=== PATIENT | female | born 2000 | race Caucasian/White ===

== ENCOUNTER → 2019-02-13 13:30 | Outpatient (CLI) | payer MEDICAID ==
--- NOTE | ~2019-02-13 | ST ---
PATIENT:KALEB DAVE MEDICAL RECORD: [id number] SEX: F LOCATION:[facility] ORDER #: ADMISSION DATE: 02/13/19 AGE OF PATIENT: 18 REFERRING PHYSICIAN: INTERPRETING PHYSICIAN: ASHLEY MUJICA MD DATE OF SERVICE: 02/13/2019 TREADMILL STRESS TEST Baseline ECG is normal. She exercised for 10 minutes on Tenzin protocol. Maximum heart rate of 189 beats per minute, greater than 85% of max predicted. No ECG changes for ischemia. No symptoms of ischemia. Normal blood pressure response to exercise. No arrhythmias noted. TRANSINT:[id number] Voice Confirmation ID: [id number] DOCUMENT ID: [id number] ASHLEY MUJICA MD CC: [id number] DICTATION DATE: 02/14/19 1340 AUDIO INSTALLER: 02/14/19 1442 [facility] CLI 02/13/[address] [address]
--- NOTE | ~2019-02-13 | EC ---
PATIENT:KALEB DAVE DATE OF SERVICE: 02/13/19 SEX: F MEDICAL RECORD: [id number] DATE OF : [birth year] LOCATION:D[facility] AGE OF PATIENT: 18 ADMISSION DATE: 02/13/19 REFERRING PHYSICIAN: INTERPRETING PHYSICIAN: ASHLEY MUJICA MD ECHOCARDIOGRAM REPORT ECHO CHARGES 4 ECHO COMPLETE Date: 02/13/19 CLINICAL DIAGNOSIS: MURMUR ECHOCARDIOGRAPHIC MEASUREMENTS (adult normal given) AC root (d.<3.7cm) 3.0 cm LV Septum d (<1.2 cm> 0.90 cm Valve Excursion 1.4 cm LV Septum (systole) 1.3 cm Left Atria (s.<4.0cm> 2.9 cm LVPW d(<1.2cm) 1.1 cm RV (d.<2.3cm) 3.8 cm LVPW (sytole) 1.4 cm LV diastole(<5.6CM) 4.0 cm MV E-F(>70mm/sec) cm LV systole 2.3 cm LVOT Diameter 1.7 cm MV exc.(>10mm) 1.5 cm Est.ejection fraction (50-75%) % DOPPLER: LVIT cm/sec A 45.0 cm/sec E 85.0 cm/sec LA cm/sec RVSP 36 mmHg LVOT 109 cm/sec AOP1/2T m/s Asc. Ao 119 cm/sec RVOT 74 cm/sec RA cm/sec PA 100 cm/sec AV Gradient Peak 5.71 mmHg AV Mean 2.91 mmHg AV Area 1.8 cm MV Gradient Peak 3.42 mmHg MV Mean 1.17 mmHg MV Area cm COMMENTS: Technical Support Assistant: 2 PLACIDO MOON Triple Air Valve Tester: 3 Dr. Thomas TAPE# PACS Pericardial Effusion N DATE OF SERVICE: 02/13/2019 Adequate 2-D, color-flow and spectral Doppler, and M-mode. No LVH. LV internal dimensions are normal. Wall motion is normal. EF greater than 55%. Aortic valve is tricuspid. No evidence of stenosis by Doppler interrogation. Left atrium is normal. Mitral valve shows no prolapse. Physiologic MR. Right-sided chambers are grossly normal. Physiologic TR. TRANSINT:[id number] Voice Confirmation ID: [id number] DOCUMENT ID: [id number] ECHOCARDIOGRAM REPORT [id number] KALEB DAVE GREGORY A MD CC: [id number] DICTATION DATE: 02/13/19 1550 OFFAL SEPARATOR: 02/13/19 1806 [facility] CLI 02/13/19 [id number] [place] [address]
== END | disposition home or self-care (01) ==
LOC: D.HCCARDIO 13:30
PROVIDERS: ATTEND Internal Medicine Interventional Cardiology
DX: R07.9 Chest pain, unspecified (principal)

== ENCOUNTER 2021-01-22 11:21 | Emergency (ER) | payer BC, MEDICAID ==
[~2021-01-22] VITALS: Ht 162.6 cm; Wt 90.9 kg
[2021-01-22 11:49] VITALS: BP 128/83; Ht 162.6 cm; Wt 90.9 kg
[2021-01-22] MEDS ORDERED: ZOLOFT50 MG PO (11:51)
[2021-01-22] MEDS ORDERED: BUSPIRONE HCL7.5 MG PO (11:51)
[2021-01-22 12:43] LABS: BASOPHILS 0.2 % (0-2); EOSINOPHILS 0.8 % (0-7); HEMATOCRIT 39.6 % (36.0-48.0); HEMOGLOBIN 12.9 g/dL (12-16); IMMATURE GRANULOCYTES 0.2 % (0-5); LYMPHOCYTE ABS# 1.47 10x3/uL (1.18-3.74); LYMPHOCYTES 22.7 % (15-50); MCH 27.6 pg (26.0-34.0); MCHC 32.6 g/dL (31.0-37.0); MCV 84.8 fL (80.0-100.0); MEAN PLATELET VOLUME 10.5 fL (7.4-10.4); MONOCYTES 6.2 % (2-11); NEUTROPHIL ABS# 4.55 10x3/uL (1.56-6.13); NEUTROPHILS 69.9 % (40-80); PLATELET COUNT 231 10x3/uL (130-400); RBC 4.67 10x6/uL (4.00-5.40); WBC 6.5 10x3/uL (4.8-10.8)
[2021-01-22 12:53] LABS: CALC OSMOLALITY 283 mosm/kg (275-300); CALCIUM 9.2 mg/dL (8.5-10.1); CARBON DIOXIDE 28.7 mmol/L (21.0-32.0); CHLORIDE - SERUM 105 mmol/L (98-107); CREATININE - SERUM 0.9 mg/dL (0.6-1.3); GLUCOSE 86 mg/dL (74-106); POTASSIUM - SERUM 3.8 mmol/L (3.5-5.1); SODIUM 143 mmol/L (136-145); UREA NITROGEN 13 mg/dL (7-18); eGFR NON AFRICAN AMERICAN 84 mL/min (90-120)
[2021-01-22 13:00] LABS: ALBUMIN 3.9 g/dL (3.4-5.0); ALKALINE PHOSPHATASE 104 U/L (30-120); ALT (SGPT) 32 U/L (10-68); BILIRUBIN - TOTAL 0.35 mg/dL (0.2-1.3); PROTEIN - SERUM 7.4 g/dL (6.4-8.2)
[2021-01-22 13:01] LABS: HCG SERUM NEGATIVE (NEGATIVE)
[2021-01-22 14:29] LABS: BACTERIA FEW HPF (NONE SEEN); BILIRUBIN NEGATIVE (NEGATIVE); KETONE NEGATIVE (NEGATIVE); NITRITE NEGATIVE (NEGATIVE); SQUAMOUS EPITHELIAL 0-5 HPF (0-4); UROBILINOGEN NORMAL mg/dL (< 2); WHITE CELLS - URINE RARE HPF (0-4)
== END 2021-01-22 15:23 | disposition home or self-care (01) ==
LOC: D.ER 11:21
PROVIDERS: Family Medicine
DX: R10.2 Pelvic and perineal pain (principal); N93.9 Abnormal uterine and vaginal bleeding, unspecified

== ENCOUNTER 2021-02-05 06:50 | Day surgery (SDC) | payer BC, MEDICAID ==
[2021-02-02 15:33] LABS: BASOPHILS 0.2 % (0-2); EOSINOPHILS 0.5 % (0-7); HEMATOCRIT 39.1 % (36.0-48.0); IMMATURE GRANULOCYTES 0.2 % (0-5); LYMPHOCYTE ABS# 1.77 10x3/uL (1.18-3.74); LYMPHOCYTES 26.8 % (15-50); MCH 27.7 pg (26.0-34.0); MCHC 33.2 g/dL (31.0-37.0); MCV 83.4 fL (80.0-100.0); MEAN PLATELET VOLUME 10.9 fL (7.4-10.4); MONOCYTES 6.7 % (2-11); NEUTROPHIL ABS# 4.34 10x3/uL (1.56-6.13); NEUTROPHILS 65.6 % (40-80); PLATELET COUNT 217 10x3/uL (130-400); RBC 4.69 10x6/uL (4.00-5.40); RDW 12.8 % (11.5-14.5); WBC 6.6 10x3/uL (4.8-10.8)
[~2021-02-05] VITALS: Ht 157.5 cm; Wt 87.3 kg
[~2021-02-05 06:50] MED LIST: BUSPIRONE HCL7.5 MG PO; ZOLOFT50 MG PO
[2021-02-05 08:15] VITALS: BP 132/70; BMI 35.2
[2021-02-05 08:36] LABS: HCG URINE NEGATIVE (NEGATIVE)
--- NOTE | 2021-02-05 11:31 | NUR ---
PT STATES LEFT SIDE OF ABD HURTS. GAVE 25 DEM AND .5 OF DIL. PATIENT DROWSY. SAT AT 94% ON 3L AT THIS TIME. EDUCATED ON OVERSEDATION.
[2021-02-05 11:48] VITALS: BP 135/73
--- NOTE | 2021-02-05 11:48 | NUR ---
PT RECEIVED TO ROOM 1278 VIA STRETCHER FROM PACU. PT AAOx3 BUT SLIGHTLY DROWSY. PT ABLE TO TRANSFER SELF FROM STRETCHER TO BED WITH MINIMAL ASSIST. VSS, SEE FLOWSHEET. 2L O2 VIA NC. LR INFUSING ORDERED TO RIGHT FOREARM PIV. 3 LAP INCISIONS NOTED TO ABD ARE C/D WITH DERMABOND INTACT. NO VAGINAL BLEEDING SEEN, PERIPAD PLACED TO MONITOR. HINES CATH DRAINING CLEAR YELLOW URINE TO BEDSIDE DRAINAGE, 15ML NOTED IN UROMETER. SCD'S ON LE BILAT AND ON PUMP. PT DENIES WANTING ICE CHIPS AT THIS TIME. SRUx2, CL IN REACH. SIG OTHER AT BEDSIDE .
--- NOTE | 2021-02-05 13:10 | NUR ---
THIS RN TO ROOM FOR PT CHECK. PT STATES SHE FEELS LIKE SHE HAD SOME VAGINAL BLEEDING. PERIPAD CHECK AND NOTED TO HAVE QUARTER SIZED SPOT OF BRIGHT RED BLOOD. PT REASSURED. HINES CATH NOTED TO HAVE 30ML CLEAR YELLOW URINE IN UROMETER. PT REPORTS STILL HAVING SOME LEFT SIDED PAIN, DENIES NEED FOR PAIN MED. USING ICE PACK TO LEFT ABD. SRUx2, CL IN REACH. SIG OTHER ON BEDSIDE COUCH.
--- NOTE | 2021-02-05 13:25 | NUR ---
LAB TO ROOM FOR ORDERED LABS.
[2021-02-05 13:48] LABS: BASOPHILS 0 % (0-2); EOSINOPHILS 0 % (0-7); HEMATOCRIT 39.6 % (36.0-48.0); HEMOGLOBIN 12.9 g/dL (12-16); IMMATURE GRANULOCYTES 0.1 % (0-5); LYMPHOCYTE ABS# 0.56 10x3/uL (1.18-3.74); LYMPHOCYTES 6.4 % (15-50); MCH 27.3 pg (26.0-34.0); MCHC 32.6 g/dL (31.0-37.0); MCV 83.9 fL (80.0-100.0); MEAN PLATELET VOLUME 10.7 fL (7.4-10.4); MONOCYTES 0.1 % (2-11); NEUTROPHIL ABS# 8.18 10x3/uL (1.56-6.13); NEUTROPHILS 93.4 % (40-80); PLATELET COUNT 206 10x3/uL (130-400); RBC 4.72 10x6/uL (4.00-5.40); RDW 12.7 % (11.5-14.5); WBC 8.8 10x3/uL (4.8-10.8)
[2021-02-05 13:51] LABS: ALBUMIN 3.4 g/dL (3.4-5.0); ALKALINE PHOSPHATASE 102 U/L (30-120); ALT (SGPT) 22 U/L (10-68); BILIRUBIN - TOTAL 0.25 mg/dL (0.2-1.3); CALC OSMOLALITY 276 mosm/kg (275-300); CALCIUM 8.8 mg/dL (8.5-10.1); CARBON DIOXIDE 27.7 mmol/L (21.0-32.0); CHLORIDE - SERUM 105 mmol/L (98-107); CREATININE - SERUM 0.9 mg/dL (0.6-1.3); GLUCOSE 106 mg/dL (74-106); POTASSIUM - SERUM 4.3 mmol/L (3.5-5.1); SODIUM 139 mmol/L (136-145); UREA NITROGEN 10 mg/dL (7-18); eGFR NON AFRICAN AMERICAN 84 mL/min (90-120)
--- NOTE | 2021-02-05 14:23 | NUR ---
DR RESENDEZ ON UNIT, REVIEWS LAB RESULTS. ORDER RECEIVED MAY ADVANCE PT TO CLEAR LIQUIDS, START ON TORADOL IV PRN PAIN, AND BOLUS 500ML LR x 1 FOR LOW URINE OUTPUT. TORADOL ADMIN ORDERED WELL ALONG WITH SCHEDULED SIMETHICONE PER PT NOW TOLERATING ICE CHIPS. LR BOLUS INITIATED AND SET FOR 500ML. PT AND SPOUSE UPDATED ON POC. PT REQUESTING TEA, WILL PROVIDE REQUESTED PER CLEAR LIQUID DIET. 65ML CLEAR YELLOW URINE EMPTIED FROM UROMETER. ABD CHECK AND INCISIONS REMAIN C/D/I AND ABD SOFT/FLAT. SCD'S REMAIN ON LE BILAT. IV C/D/I. SRUx2, CL IN REACH.
--- NOTE | 2021-02-05 14:30 | NUR ---
60ML CLEAR YELLOW URINE EMPTIED FROM UROMETER.
--- NOTE | 2021-02-05 15:15 | NUR ---
PT PROVIDED WITH WARM BLANKET, SOCKS, ICE PACK TO ABD, AND CUP OF ICE PER REQUEST. INCENTIVE SPIROMETER TEACHING DONE. PT COUGHING AND DEEP BREATHING WITH GOOD EFFORT. SRUx2, CL IN REACH. SIG OTHER AT BEDSIDE.
--- NOTE | 2021-02-05 16:27 | NUR ---
THIS RN TO ROOM FOR PT CHECK. PT SITTING UP IN BED DRINKING TEA. PT C/O PAIN RATED AND REQUESTING SOMETHING STRONGER FOR PAIN THAN TORADOL. PT ADMIN 1MG DILAUDID ORDERED PRN PAIN, SEE EMAR FOR DOC. 135ML CLEAR YELLOW URINE EMPTIED FROM UROMETER. PT STATES SHE IS GOING TO TRY TO REST NOW. LIGHTS IN ROOM DIM. SRUx2, CL IN REACH.
--- NOTE | 2021-02-05 17:03 | NUR ---
PT VISITOR TO ROOM AT THIS TIME. PT DENIES PAIN OR ANY NEEDS. SRUX2, CL IN REACH.
[2021-02-05 17:12] VITALS: BP 130/75; Ht 157.5 cm; Wt 87.3 kg
[2021-02-05 18:03] LABS: HEMATOCRIT 40.5 % (36.0-48.0); HEMOGLOBIN 13.4 g/dL (12-16)
--- NOTE | 2021-02-05 18:30 | NUR ---
DR RESENDEZ PHONES UNIT FOR UPDATE ON PT. REPORT GIVEN ON H/H AND THAT BMP SHOWS CANCELLED, INCREASED UOP AND PT TOLERATING CLEAR LIQUIDS WITH NO NAUSEA. ORDER RECEIVED TO NORMALIZE PT, REGULAR DIET, D/C HINES, MAY AMBULATE AND SHOWER. [facility] PT WILL HAVE 0500 AND CBC AND SHE WILL ROUND IN THE AM TO SEE PT. LAB PHONED AND NOTIFIED OF NEED FOR BMP TO BE RAN FROM 1700 BLOOD DRAW. [facility] WILL RUN LAB NOW.
--- NOTE | 2021-02-05 18:40 | NUR ---
PT UPDATED ON POC. SIG OTHER TO GO GET PT REGULAR DIET MEAL FOR DINNER.
--- NOTE | 2021-02-05 18:40 | NUR ---
DR RESENDEZ PHONED AND INFORMED LAB DID NOT DRAW ENOUGH BLOOD FOR BMP. ORDER RECEIVED TO CANCEL LAB FOR NOW AND PLACE ORDER FOR BMP AT 0500 WITH CBC. PO MED ORDERS RECEIVED FOR PAIN CONTROL. STATES WILL SEE PT IN AM.
--- NOTE | 2021-02-05 18:55 | NUR ---
SEE PAPER CHART FOR PT VITAL SIGNS FOR 02/05/21 DAY SHIFT.
--- NOTE | 2021-02-05 19:30 | NUR ---
PT RESTING IN BED, A,A,OX4. VSS. SEE FULL ASSESSMENT PER FLOWSHEET. 3 LAP INCISIONS NOTED AT UMBIICUS, LEFT LOWER AND UPPER QUADRANT LT SIDE OF ABDOMEN. C/D/I. SCANT AMOUNT OF BLEEDING ON PERIPAD. SCD'S ON. PIV IN RT FOREARM INFUSING 125 ML/HR LR. C/D/I. HINES DRAINING TO BEDSIDE DRAINAGE, 50 MLS YELLOW URINE. PT DENIES NEEDS AT THIS TIME. CALL LIGTH WITHIN REACH.
[2021-02-05 20:00] VITALS: BP 115/64
--- NOTE | 2021-02-05 20:16 | NUR ---
PIV IN RT FOREARM SALINE LOCKED. LFOLEY CATHETER DC'D. 100 MLS YELLOW URINE IN BEDSIDE DRAIANGE. MEDICATIONS ADMINISTERED PER EMAR, ICE WATER PROVIDED. NEW PERIPAD PLACED.
--- NOTE | 2021-02-05 20:50 | NUR ---
PATIENT CALLED OUT TO USE THE BATHROOM. PATIENT ASSISTED UP TO BATHROOM, VOIDED WITH OUT DIFFICULTY. PAD AND PANTIES IN PLACE. ALL LINENS CHANGED ON BED.
--- NOTE | 2021-02-05 20:53 | NUR ---
MEDICATION ADMINISTERED PER EMAR. PT UP TO BR FOR FIRST TIME WITHOUT DIFFICULTY. LINENS CHANGED. PT DENIES NEEDS AT THIS TIME.
--- NOTE | 2021-02-05 21:10 | NUR ---
PATIENT AMBULATING IN HALLWAY WITH SIGNIFICANT OTHER.
--- NOTE | 2021-02-05 22:35 | NUR ---
PT RESTING WITH EYES CLOSED, BREATHING NONLABORED.
--- NOTE | 2021-02-06 02:47 | NUR ---
PT CALS OUT ON LIGHT REQUESTING MORE PAIN MEDICINE. PERCOCET 10 ADMINISTRED PER EMAR. ICE PACK PROVIDED.
--- NOTE | 2021-02-06 05:04 | NUR ---
PT RESTING, DENIES NEEDS AT THIS TIME.
--- NOTE | 2021-02-06 06:04 | NUR ---
GAS-X ADMINISTERED PER EMAR. PT DENIES NEEDS AT THIS TIME.
[2021-02-06 08:24] LABS: CALC OSMOLALITY 276 mosm/kg (275-300); CALCIUM 8.4 mg/dL (8.5-10.1); CARBON DIOXIDE 25.8 mmol/L (21.0-32.0); CHLORIDE - SERUM 104 mmol/L (98-107); CREATININE - SERUM 0.8 mg/dL (0.6-1.3); GLUCOSE 105 mg/dL (74-106); POTASSIUM - SERUM 4.4 mmol/L (3.5-5.1); SODIUM 139 mmol/L (136-145); UREA NITROGEN 11 mg/dL (7-18); eGFR NON AFRICAN AMERICAN > 90 mL/min (90-120)
[2021-02-06] MEDS ORDERED: PERCOCET 10-321 EAC1 PO (08:29)
[2021-02-06 08:30] LABS: BASOPHILS 0 % (0-2); EOSINOPHILS 0.1 % (0-7); HEMATOCRIT 35.9 % (36.0-48.0); HEMOGLOBIN 11.9 g/dL (12-16); IMMATURE GRANULOCYTES 0.2 % (0-5); LYMPHOCYTE ABS# 1.37 10x3/uL (1.18-3.74); LYMPHOCYTES 10.6 % (15-50); MCH 27.8 pg (26.0-34.0); MCHC 33.1 g/dL (31.0-37.0); MCV 83.9 fL (80.0-100.0); MEAN PLATELET VOLUME 11.5 fL (7.4-10.4); MONOCYTES 6.6 % (2-11); NEUTROPHIL ABS# 10.65 10x3/uL (1.56-6.13); NEUTROPHILS 82.5 % (40-80); PLATELET COUNT 213 10x3/uL (130-400); RBC 4.28 10x6/uL (4.00-5.40); RDW 12.8 % (11.5-14.5); WBC 12.9 10x3/uL (4.8-10.8)
[2021-02-06] MEDS ORDERED: IBUPROFEN800 MG PO (08:30)
--- NOTE | 2021-02-06 09:11 | NUR ---
PAIN MED GIVEN SCANNED TO EMAR. RATES PAIN AT 4/10 AT THIS TIME. SALINE LOCK REMOVED INTACT FROM RIGHT FOREARM. PT UP TO BATHROOM AND REASSURED WAS OK FOR HER TO DRESS FOR DISCHARGE. SPOUSE AT BEDSIDE.
--- NOTE | 2021-02-06 09:40 | NUR ---
PT'S SIG OTHER TO DESK REQUESTING TO HAVE PT'S VITAL SIGNS TAKEN STATING "HER MOTHER WANTS TO KNOW".
[2021-02-06 09:45] VITALS: BP 113/72
--- NOTE | 2021-02-06 10:45 | NUR ---
BLOOD DRAWN FOR H/H BY Terry MCINTYRE RN AND TAKEN TO LAB.
[2021-02-06 11:03] LABS: HEMATOCRIT 37.5 % (36.0-48.0); HEMOGLOBIN 12.3 g/dL (12-16)
--- NOTE | 2021-02-06 11:09 | NUR ---
LARGE CUP OF ICE REQUESTED, NO OTHER NEEDS AT THIS TIME.
--- NOTE | 2021-02-06 12:24 | NUR ---
VERBAL AND WRITTEN DISCHARGE ORDERS GONE OVER, PT IS GIVEN WRITTEN SCRIPT FOR [id number]/325MG AND MOTRIN 800MG. STATES UNDERSTANDING TO ALL INFO GIVEN AND DENIES QUESTIONS. SHE IS WAITING FOR HER RIDE AND WILL CALL FOR NURSE WHEN SHE IS READY.
--- NOTE | 2021-02-06 12:41 | NUR ---
PT CALLS OUT THAT HER RIDE IS HERE. THIS RN TO BEDSIDE, ABD BINDER PLACED ON AND PT SHOWN HOW TO ADJUST FOR COMFORT. TAKEN OUT TO CAR BY WHEELCHAIR, HOME WITH SPOUSE BY PRIVATE CAR.
--- NOTE | 2021-02-14 21:22 | OP ---
PATIENT NAME: KALEB BEARD MEDICAL RECORD: [id number] :99 LOCATION:D.[facility] ADMISSION DATE: SURGEON: BENIGNO MARTINEZ DO DATE OF OPERATION: 02/05/2021 PREOPERATIVE DIAGNOSIS: Pelvic pain. POSTOPERATIVE DIAGNOSES: Endometriosis, uterine perforation. PRIMARY SURGEON: Benigno Martinez DO ANESTHESIA: Endotracheal tube. PROCEDURE: Diagnostic laparoscopy, fulguration of endometrial implants. FINDINGS: Endometrial implants in the uterosacral ligaments and posterior cul-de-sac, less than a 0.5 cm area of perforation on right side of the uterus above the lower uterine segment without active bleeding. Adriana placed on the area. Grossly normal abdominal anatomy including uterus, bilateral fallopian tubes, and bilateral ovaries. ESTIMATED BLOOD LOSS: 20 cc. IV FLUIDS: 900 mL URINE OUTPUT: 300 cc of clear yellow urine and Horton, clear urine draining. INFECTION PROPHYLAXIS: 1 gram Ancef. COMPLICATIONS: Uterine perforation. Prior to procedure, the patient was seen in the office and risks of the procedure were discussed with the patient including bleeding, pain, infection, damage to surrounding structures such as bowel, bladder, and neurovascular structures, formation of scar tissue, decreased activity, VTE, perforation. The patient expressed understanding and signed the consents in the office and preoperatively, all questions answered. DESCRIPTION OF PROCEDURE: The patient was taken to the operating room where general anesthesia was administered. She was prepped and draped in normal sterile fashion in dorsal lithotomy position with Gordo stirrups. Horton was placed and a speculum was in the uterus. Anterior lip of the cervix was grasped with tenaculum, sounded to 8.5 to 9 cm. A flat tipped dilator was utilized to dilate the cervix. HUMI retractor placed and inflated. Tenaculum and speculum were removed from cervix. Attention was then turned to the abdomen. All port sites infiltrated with Marcaine prior to port placement. 5mm Subumbilical incision made with scalpel. Trocar attempted to be placed but did not go in easily and appeared to be adhesions with direct entry technique. Decision made for entry at [facility] point. 5mm incision made, placed via direct entry without issue. Pneumoperitonueum created. No trauma noted below by scope. Looked at subumbilical site and some small adhesions noted, but no trauma or active bleeding noted. Adominal survery completed. Liver was grossly normal and falciform ligament a little bit enlarged and with adhesions, but otherwise grossly normal. 5mm incision made in left lower quadrant and OPERATIVE REPORT [id number] KISHA,KALEB MYERS port placed under direct visualization without any issue. Uterus, bilateral tubes, and ovaries inspected. Noted to have small blood clot on anterior aspect and irrigated off and small perforation noted above lower uterine segment. No active bleeding noted from site and surrrounding bowel in cul de sac without bleeding or trauma noted. Grossly normal bilateral fallopian tubes and ovaries noted. Uterus manipulated and posterior cul-de-sac and uterosacral ligaments examined, noted to have multiple small endometrial implants along both uterosacral ligaments. Implants that were clearly visible were cauterized with the J-Hook, with good hemostasis and the pelvis irrigated. Next, 5 cc of Marcaine sprayed over the implants. Attention then turned to the anterior portion of the uterus. Again, hemostasis was noted to be adequate. Adriana placed over the sites of perforation. No other issues noted. Instruments removed. Pneumoperitoneum deflated. HUMI retractor removed. Skin was closed in subcuticular fashion with 3-0 Monocryl and Dermabond. The patient was awakened and taken to recovery in stable condition. All needle, sponge, and instrument counts were correct times 2. TRANSINT:[id number] Voice Confirmation ID: [id number] DOCUMENT ID: [id number] BENIGNO MARTINEZ DO at 2122 CC: [id number] DICTATION DATE: 02/05/21 1223 TAFE TEACHER: 02/05/21 1420 [facility] 02/06/21 [id number] [place] [address]
== END 2021-02-06 12:46 | disposition home or self-care (01) ==
LOC: D.OPS 06:50 → D.LD 11:57 → D.OPS 02-06 12:46
PROVIDERS: ATTEND Obstetrics & Gynecology
DX: R10.2 Pelvic and perineal pain (principal); N80.0 Endometriosis of uterus; N80.3 Endometriosis of pelvic peritoneum; N97.9 Female infertility, unspecified